=== PATIENT | male | born 1955 | race Caucasian/White ===

== ENCOUNTER 2017-10-21 11:49 | Inpatient (IN) | payer BC ==
--- NOTE | 2017-10-21 12:29 | PDOC ---
Attending Attestation - Resident Resident Name: Jarrett Quevedo - ED Attending Attestation I have performed the following: I have examined & evaluated the patient, The case was reviewed & discussed with the resident, I agree w/resident's findings & plan, Exceptions are as noted - HPI HPI: 62 yo M sent by Dr. Yadav for severe abdominal pain. He was seen by Dr. Mcelroy yesterday for a liver biopsy, initially without any pain. However, over the course of the evening and into this morning he developed worsening pain, now severe. Pain is RUQ, radiating to R arm. Denies fever, chills. He has not taken anything for pain. - Physicial Exam PE: GENERAL: Awake, alert, and fully oriented. In obvious discomfort. HEAD: No signs of trauma EYES: PERRLA, EOMI, sclera anicteric, conjunctiva clear ENT: Auricles normal inspection, hearing grossly normal, nares patent, oropharynx clear without exudates. Moist mucosa NECK: Normal ROM, supple, no lymphadenopathy, JVD, or masses LUNGS: Breath sounds equal, clear to auscultation bilaterally. No wheezes, and no crackles HEART: Regular rate and rhythm, normal S1 and S2, no murmurs, rubs or gallops ABDOMEN: Firm, diffusely tender, normoactive bowel sounds. +Guarding and rebound. No masses EXTREMITIES: Normal range of motion, no edema. No clubbing or cyanosis. No cords, erythema, or tenderness NEUROLOGICAL: Cranial nerves II through XII grossly intact. Normal speech, normal gait SKIN: Warm, Dry, normal turgor, no rashes or lesions noted. - Medical Decision Making 10/21/17 12:47 Pt s/p liver biopsy with Dr. Mcelroy yesterday, now sent from Dr. Yadav's office with severe abd pain. Abd rigid. Will obtain emergent CT, will d/w Dr. Mcelroy.
[2017-10-21] MEDS ORDERED: morphine CARPU-JECT 4 MG/1 ML DISP.SYRIN IVPUSH ONE ×2 (12:39→13:24)
[2017-10-21] MEDS ORDERED: morphine CARPU-JECT 8 MG/1 ML DISP.SYRIN ONE ×3 (12:48→21:28)
[2017-10-21 13:00] LABS: BASO % 0.3 % (0-2.0); MCH 30.8 pg (25.7-33.7); MCHC 32.6 g/dl (32.0-35.9); MEAN CELL VOLUME 94.4 fl (80-96); MEAN PLT VOLUME 9.3 fl (7.5-11.1); PLATELET COUNT 352 K/MM3 (134-434); RDW 16.4 % (11.9-15.9); WHITE BLOOD COUNT 11.6 K/mm3 (4.0-10.0)
[2017-10-21] MEDS ORDERED: SODIUM CHLORIDE 1,000 ML IV STA ×2 (13:24→16:35)
[2017-10-21 13:25] LABS: INR 1.27 (0.82-1.09); PROTHROMBIN TIME (PATIENT) 14.4 SEC (9.98-11.88)
--- NOTE | 2017-10-21 13:41 | PDOC ---
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 Onset was a few hours after his procedure. He denies associated nausea, vomiting, fevers and chills. LBM yesterday. Denies dysuria. Denies shortness of breath and chest pain. Pain is increased with inspiration. Procedure was discussed with Dr Mcelroy ([phone]) who said the procedure was tolerated without complications with a post- procedure ultrasound showing no complications. Past History - Past Medical History Allergies/Adverse Reactions: Allergies Allergy/AdvReac Type Severity Reaction Status Date / Time aspirin Allergy Verified 10/21/17 12:01 Home Medications: Ambulatory Orders Losartan/Hydrochlorothiazide [Losartan-Hctz 50-12.5 Mg Tab] 1 each PO DAILY tablet 06/07/15 Metoprolol Succinate 100 mg PO DAILY tablet 06/07/15 Simvastatin 20 mg PO DAILY tablet 06/07/15 Zonisamide [Zonegran] 100 mg PO BID capsule 06/07/15 Cardiac Disorders: Yes (cad) COPD: No Seizures: Yes Other medical history: wt loss - Surgical History Abdominal Surgery: Yes (liver biopsy, ing hernia) - Suicide/Smoking/Psychosocial Hx Smoking History: Never smoked Information on smoking cessation initiated: No Hx Alcohol Use: Yes (hx of) Drug/Substance Use Hx: No Substance Use Type: None Review of Systems - Review of Systems Able to Perform ROS?: Yes Comments:: 10/21/17 13:42 GENERAL/CONSTITUTIONAL: No fever or chills. No weakness. HEAD, EYES, EARS, NOSE AND THROAT: No change in vision. No sore throat. CARDIOVASCULAR: No chest pain or shortness of breath RESPIRATORY: No cough, wheezing, or hemoptysis. GASTROINTESTINAL: No nausea, vomiting, diarrhea or constipation. GENITOURINARY: No dysuria, frequency, or change in urination. NEUROLOGIC: No headache, vertigo, loss of consciousness, or change in strength/ sensation. HEMATOLOGIC/LYMPHATIC: No anemia, easy bleeding, or history of blood clots. ALLERGIC/IMMUNOLOGIC: No hives or skin allergy. *Physical Exam - Vital Signs Last Vital Signs Temp Pulse Resp BP Pulse Ox 99.4 F 114 H 22 174/85 100 10/21/17 12:02 10/21/17 12:02 10/21/17 12:02 10/21/17 12:02 10/21/17 12:02 - Physical Exam Comments: 10/21/17 13:42 GENERAL: Awake, alert, and fully oriented, in acute distress HEAD: No signs of trauma, normocephalic, atraumatic EYES: PERRLA, EOMI, sclera anicteric, conjunctiva clear ENT: Auricles normal inspection, hearing grossly normal, nares patent, oropharynx clear without exudates. Moist mucosa LUNGS: No distress, speaks full sentences, clear to auscultation bilaterally HEART: Regular rate and rhythm, normal S1 and S2, no murmurs, rubs or gallops, peripheral pulses normal and equal bilaterally. ABDOMEN: Rigid, diffusely tender, especially in RUQ. Guarding. EXTREMITIES: Normal inspection, Normal range of motion, no edema. No clubbing or cyanosis. NEUROLOGICAL: Cranial nerves II through XII grossly intact. Normal speech, no focal sensorimotor deficits SKIN: Warm, Dry, normal turgor, no rashes or lesions noted. ED Treatment Course - LABORATORY CBC & Chemistry Diagram: 10/21/17 12:51 10/21/17 12:51 - ADDITIONAL ORDERS Additional order review: Laboratory Results 10/21/17 12:51 PT with INR 14.40 H INR 1.27 H 10/21/17 12:51 RBC 3.78 L MCV 94.4 MCHC 32.6 RDW 16.4 H MPV 9.3 Neutrophils % 81.0 Lymphocytes % 11.5 Monocytes % 7.2 Eosinophils % 0.0 Basophils % 0.3 - RADIOLOGY Radiology Studies Ordered: Category Date Time Status ABDOMEN & PELVIS CT W/O CONTR [CT] Stat CT Scan 10/21/17 13:00 Taken CHEST X-RAY PORTABLE* [RAD] Stat Radiology 10/21/17 13:20 Ordered - Medications Given in the ED: ED Medications Discontinued Medications Generic Name Dose Route Start Last Admin Trade Name Freq PRN Reason Stop Dose Admin Morphine Sulfate 4 mg 10/21/17 12:39 10/21/17 12:56 Morphine Injection - IVPUSH 10/21/17 12:40 4 mg ONCE ONE Administration Medical Decision Making - Medical Decision Making 10/21/17 13:44 Patient is a 62M with undifferentiated cancer with spread to the liver, HTN, prior VT and seizure here today with rigid abdomen. Vital signs notable for tachycardia. Patient is in obvious distress. Protecting airway, clear breath sounds bilaterally. Initial BP stable, two IVs placed and 1L NS given. Labs drawn, EKG done. Taken immediately for dry CT scan to evaluate for free air. Given 2x4mg of morphine for pain control. Differential diagnosis includes, but is not limited to: perf, liver laceration/bleed. Will call surgery if free air found on CT scan. Will do CT w/ IV contrast if nothing apparent on dry CT. Heart rate down to mid 90s after pain control and fluids. EKG shows normal sinus rhythm. Normal rate ([address] elevations/ depressions. Normal QTc and CT interval. T wave inverions in V3, V4, V5, V6. 10/21/17 14:34 Laboratory Tests 10/21/17 10/21/17 10/21/17 12:51 12:51 12:51 WBC 11.6 H Hgb 11.6 L Hct 35.7 Plt Count 352 INR VBG pH POC VBG pCO2 Anion Gap 11 BUN 13 Creatinine 0.9 Lactic Acid 2.0 Total Bilirubin 1.1 H AST 41 H ALT 57 Alkaline Phosphatase 124 H 10/21/17 10/21/17 12:51 13:20 WBC Hgb Hct Plt Count INR 1.27 H VBG pH 7.29 L POC VBG pCO2 53.3 H Anion Gap BUN Creatinine Lactic Acid Total Bilirubin AST ALT Alkaline Phosphatase CBC shows small leukocytosis. Hgb 11.6, no baseline known. No gap. Tbili of 1.1 , AST and alk phos mildly elevated. VBG shows ph of 7.29 with pCO2 of 53. Abd/Pelvis dry ct shows small amount of fluid concerning for blood in pelvis. Will evaluate further with CT abd/pelvis with contrast. Patient now resting comfortably in bed after fluids and morphine, SBP in 150s and HR between 85-95. 10/21/17 19:38 Patient signed out to Dr Navarro. Patient admitted to med/surg. *DC/Admit/Observation/Transfer Diagnosis at time of Disposition: Abdominal pain - Discharge Dispostion Condition at time of disposition: Stable Admit: Yes - Referrals Referrals: James Yadav MD [Primary Care Provider] - - Patient Instructions - Post Discharge Activity
[2017-10-21 13:45] LABS: ALBUMIN 3.5 g/dl (3.4-5.0); ALK PHOS 124 U/L (45-117); ANION GAP 11 (8-16); BILIRUBIN,TOTAL 1.1 mg/dL (0.2-1.0); CALCIUM 9.7 mg/dL (8.5-10.1); CO2 25 mmol/L (21-32); CREATININE 0.9 mg/dL (0.7-1.3); GLUCOSE,RANDOM 111 mg/dL (74-106); SGOT/AST 41 U/L (15-37); SGPT/ALT 57 U/L (12-78)
[2017-10-21 14:26] LABS: VENOUS BLOOD GAS HCO3 25.1 meq/L (19-25); VENOUS PH 7.29 (7.32-7.42)
[2017-10-21 17:25] LABS: URINE APPEARANCE CLEAR; URINE BILIRUBIN NEGATIVE (NEGATIVE); URINE BLOOD NEGATIVE (NEGATIVE); URINE COLOR AMBER; URINE GLUCOSE (UA) NEGATIVE (NEGATIVE); URINE KETONE NEGATIVE (NEGATIVE); URINE LEUK ESTERASE NEGATIVE (NEGATIVE); URINE NITRITE NEGATIVE (NEGATIVE); URINE PROTEIN NEGATIVE (NEGATIVE); URINE UROBILINOGEN NEGATIVE mg/dL (0.2-1.0)
--- NOTE | 2017-10-21 18:57 | CON.GI ---
Consult Consult Specialty:: GI Reason for Consultation:: pain after liver biopsy - History of Present Illness Chief Complaint: 62 y.o. M with metastatic disease to liver from unknown primary. I performed a liver bx under ultrasound guidance yesterday. A post- biopsy ultrasound did not show any hematoma. According to patient and his , he developed diffuse abdominal pain last night and this morning and finally decided to come to ER for pain relief. Denies fever, chills. vomiting. - Alcohol/Substance Use Hx Alcohol Use: Yes (hx of) - Smoking History Smoking history: Never smoked Home Medications - Allergies Allergies/Adverse Reactions: Allergies Allergy/AdvReac Type Severity Reaction Status Date / Time aspirin Allergy Verified 10/21/17 12:01 - Home Medications Home Medications: Ambulatory Orders Losartan/Hydrochlorothiazide [Losartan-Hctz 50-12.5 Mg Tab] 1 each PO DAILY tablet 06/07/15 Metoprolol Succinate 100 mg PO DAILY tablet 06/07/15 Simvastatin 20 mg PO DAILY tablet 06/07/15 Zonisamide [Zonegran] 100 mg PO BID capsule 06/07/15 Physical Exam-GI Vital Signs: Vital Signs Temperature 99.4 F 10/21/17 12:02 Pulse Rate 90 10/21/17 16:46 Respiratory Rate 18 10/21/17 16:46 Blood Pressure 171/73 10/21/17 16:46 O2 Sat by Pulse Oximetry (%) 96 10/21/17 16:46 ...Auscultate: Yes: Hypoactive Bowel Sounds (He has slightly hypoactive bowel sounds with guarding but no rebound tenderness. He is able to bend his legs without pain.) ...Palpate: Yes: Guarding Labs: CBC, BMP 10/21/17 12:51 10/21/17 12:51 INR, PTT INR 1.27 (0.82-1.09) H 10/21/17 12:51 Imaging - Results Cat Scan: Image Reviewed (No sign of perforation. There may be a small amount of fluid in the pelvis, possibly malignant ascites, possibly a small amount of blood.) Problem List - Problems (1) Neoplasm of liver Assessment/Plan: Case discussed with ER staff physician, Dr Quevedo. Recommend keeping patient for observation. He appears to be in genuine discomfort. He did tell me yesterday that he has been getting increasing abdominal pain over the past few weeks, and it is possible that his tumor is now encroaching on sensitive nerves. Nevertheless, with an increase in pain occurring so dramatically after the liver biopsy, it is prudent to observe him to see whether something more definite develops.
[2017-10-21 20:39] LABS: URINE LEUK ESTERASE Negative (NEGATIVE)
--- NOTE | 2017-10-21 20:57 | EKG ---
Test Reason : Blood Pressure : / mmHG Vent. Rate : 095 BPM Atrial Rate : 095 BPM P-R Int : 162 ms QRS Dur : 094 ms QT Int : 316 ms P-R-T Axes : 063 061 025 degrees QTc Int : 397 ms NORMAL SINUS RHYTHM MODERATE VOLTAGE CRITERIA FOR LVH, MAY BE NORMAL VARIANT T WAVE ABNORMALITY, CONSIDER LATERAL ISCHEMIA ABNORMAL ECG NO PREVIOUS ECGS AVAILABLE Confirmed by MD LEO, VISHAL ([id number]) on 10/21/2017 8:57:06 PM Referred By: Confirmed By:VISHAL BAILEY MD
[2017-10-21] MEDS ORDERED: morphine CARPU-JECT 8 MG/1 ML DISP.SYRIN IVPUSH ONE (21:30)
[2017-10-21] MEDS ORDERED: morphine CARPU-JECT 8 MG/1 ML DISP.SYRIN IVPUSH PRN (21:49)
--- NOTE | 2017-10-21 21:49 | HP ---
CHIEF COMPLAINT: abdominal pain PCP: Maris HISTORY OF PRESENT ILLNESS: This is a 62 year old male with a past medical history of abdominal pain/weight loss, metastatic liver CA, unk primary who presented to the ED with severe RUQ abdominal pain s/p liver biopsy yesterday. He reports that he has been having abdominal pain and weight loss for some time now but the pain became severe a few hours post biopsy. He was unable to sleep due to the pain and thus presented to the ED. He reports the pain radiates to his left arm but denies any nausea, vomiting or diarrhea. ER course was notable for: (1) CT with perihepatic fluid, possible small hemoperitoneum (2) Hgb 11.6 Recent Travel: pt denies PAST MEDICAL HISTORY: metastatic liver CA, unk primary-family and pt unaware of this definitive diagnosis seizure d/o IA-10y ago HLD CAD PAST SURGICAL HISTORY: hernia repair age 3 Social History: Smoking: pt denies ever Alcohol: quit drinking 10y ago Drugs: pt denies Family History: mother age 86, Alzheimers, DM father age 71, ESRD brother alive with DM No fam hx IA, cancer Allergies aspirin Allergy (Verified 10/21/17 12:01) HOME MEDICATIONS: 3 Medication Instructions Recorded Losartan/Hydrochlorothiazide 1 each PO DAILY tablet 06/07/15 [Losartan-Hctz 50-12.5 Mg Tab] Metoprolol Succinate 100 mg PO DAILY tablet 06/07/15 Simvastatin 20 mg PO DAILY tablet 06/07/15 Zonisamide [Zonegran] 100 mg PO BID capsule 06/07/15 REVIEW OF SYSTEMS CONSTITUTIONAL: weight change Absent: fever, chills, diaphoresis, generalized weakness, malaise, loss of appetite HEENT: Absent: rhinorrhea, nasal congestion, throat pain, throat swelling, difficulty swallowing, mouth swelling, ear pain, eye pain, visual changes CARDIOVASCULAR: Absent: chest pain, syncope, palpitations, irregular heart rate, lightheadedness , peripheral edema RESPIRATORY: Absent: cough, shortness of breath, dyspnea with exertion, orthopnea, wheezing, stridor, hemoptysis GASTROINTESTINAL: abdominal pain Absent: abdominal distension, nausea, vomiting, diarrhea, constipation, melena, hematochezia GENITOURINARY: Absent: dysuria, frequency, urgency, hesitancy, hematuria, flank pain, genital pain MUSCULOSKELETAL: Absent: myalgia, arthralgia, joint swelling, back pain, neck pain SKIN: Absent: rash, itching, pallor HEMATOLOGIC/IMMUNOLOGIC: Absent: easy bleeding, easy bruising, lymphadenopathy, frequent infections ENDOCRINE: Absent: unexplained weight gain, heat intolerance, cold intolerance NEUROLOGIC: Absent: headache, focal weakness or paresthesias, dizziness, unsteady gait, seizure, mental status changes, bladder or bowel incontinence PSYCHIATRIC: Absent: anxiety, depression, suicidal or homicidal ideation, hallucinations. PHYSICAL EXAMINATION Vital Signs - 24 hr 3 10/21/17 10/21/17 12:02 16:46 Temperature 99.4 F Pulse Rate 114 H Pulse Rate [ 90 Right Radial] Respiratory 22 18 Rate Blood Pressure 174/85 Blood Pressure 171/73 [Left Arm] O2 Sat by Pulse 100 96 Oximetry (%) GENERAL: Awake, alert, and fully oriented, in no acute distress. HEAD: Normal with no signs of trauma. EYES: Pupils equal, round and reactive to light, extraocular movements intact, sclera anicteric, conjunctiva clear. No lid lag. EARS, NOSE, THROAT: Ears normal, nares patent, oropharynx clear without exudates. Moist mucous membranes. NECK: Normal range of motion, supple without lymphadenopathy, JVD, or masses. LUNGS: Breath sounds equal, clear to auscultation bilaterally. No wheezes, and no crackles. No accessory muscle use. HEART: Regular rate and rhythm, normal S1 and S2 without murmur, rub or gallop. ABDOMEN: Soft, tender to palpation RUQ, not distended, normoactive bowel sounds, + guarding, no rebound, no masses. No hepatomegaly or splenomegaly. MUSCULOSKELETAL: Normal range of motion at all joints. No bony deformities or tenderness. No CVA tenderness. UPPER EXTREMITIES: 2+ pulses, warm, well-perfused. No cyanosis. No clubbing. No peripheral edema. LOWER EXTREMITIES: 2+ pulses, warm, well-perfused. No calf tenderness. No peripheral edema. NEUROLOGICAL: Cranial nerves II-XII intact. Normal speech. Normal gait. PSYCHIATRIC: Cooperative. Good eye contact. Appropriate mood and affect. SKIN: Warm, dry, normal turgor, no rashes or lesions noted, normal capillary refill. Laboratory Results - last 24 hr 3 10/21/17 10/21/17 10/21/17 12:51 12:51 12:51 WBC 11.6 H RBC 3.78 L Hgb 11.6 L Hct 35.7 MCV 94.4 MCH 30.8 MCHC 32.6 RDW 16.4 H Plt Count 352 MPV 9.3 Neutrophils % 81.0 Lymphocytes % 11.5 Monocytes % 7.2 Eosinophils % 0.0 Basophils % 0.3 PT with INR 14.40 H INR 1.27 H VBG pH 7.29 L POC VBG pCO2 53.3 H POC VBG pO2 29.6 Mixed VBG HCO3 25.1 H Sodium 137 Potassium 4.1 Chloride 101 Carbon Dioxide 25 Anion Gap 11 BUN 13 Creatinine 0.9 Creat Clearance w eGFR > 60 Random Glucose 111 H Lactic Acid 2.0 Calcium 9.7 Total Bilirubin 1.1 H AST 41 H ALT 57 Alkaline Phosphatase 124 H Total Protein 8.0 Albumin 3.5 Lipase 86 Urine Color Urine Appearance Urine pH Ur Specific [place] Urine Protein Urine Glucose (UA) Urine Ketones Urine Blood Urine Nitrite Urine Bilirubin Urine Urobilinogen Ur Leukocyte Esterase Blood Type A POSITIVE Antibody Screen Negative 3 Urine Color Ghazal 10/21/17 16:42 Urine Appearance Clear 10/21/17 16:42 Urine pH 5.0 (5.0-8.0) 10/21/17 16:42 Ur Specific [place] 1.038 (1.001-1.035) H 10/21/17 16:42 Urine Protein Negative (NEGATIVE) 10/21/17 16:42 Urine Glucose (UA) Negative (NEGATIVE) 10/21/17 16:42 Urine Ketones Negative (NEGATIVE) 10/21/17 16:42 Urine Blood Negative (NEGATIVE) 10/21/17 16:42 Urine Nitrite Negative (NEGATIVE) 10/21/17 16:42 Urine Bilirubin Negative (NEGATIVE) 10/21/17 16:42 Ur Leukocyte Esterase Negative (NEGATIVE) 10/21/17 16:42 ASSESSMENT/PLAN: 62yM with PMH metastatic liver CA, seizures, IA, HLD, CAD presented to the ED with severe abdominal pain s/p liver biopsy yesterday. Abdominal pain s/p liver bx - ? r/t biopsy vs tumor burden - possible hemoperitoneum on CT scan - repeat CBC in am - consider repeat CT - GI consult appreciated CAD/HLD - cont om emeds: toprol, hyzaar; zocor changed to formulary lipitor seizure d/o - cont zonegran hypothyroid - check TSH DVT PPX - deferred as expected LOS less than 48 h FEN - NS @ 100cc/hr while NPO - bmp in am - npo for now Dispo: pt currently requires inpatient observation for management of his emergent condition Visit type - Emergency Visit Emergency Visit: Yes ED Registration Date: 10/21/17 Care time: The patient presented to the Emergency Department on the above date and was hospitalized for further evaluation of their emergent condition. - New Patient This patient is new to me today: Yes Date on this admission: 10/21/17 - Critical Care Critical Care patient: No
[2017-10-21] MEDS: SODIUM CHLORIDE 1,000 ML IV SCH (21:59)
[2017-10-21] MEDS ORDERED: ATORVASTATIN CA 10 MG TABLET (FP) PO SCH (22:15)
[2017-10-21] MEDS ORDERED: DOCUSATE SODIUM 100 MG CAPSULE (FP) PO ONE (23:08)
[2017-10-21] MEDS: DOCUSATE SODIUM 100 MG CAPSULE (FP) PO SCH (23:18)
[2017-10-21] MEDS: ZONISAMIDE 100 MG CAPSULE PO SCH (23:39)
[2017-10-22] MEDS: morphine SULFATE 4 MG/ML VIAL IVPUSH PRN ×3 (01:50→16:48)
[2017-10-22] MEDS: SODIUM CHLORIDE 1,000 ML IV SCH ×3 (02:26→22:18)
[2017-10-22 03:48] VITALS: BMI 21.2
[2017-10-22] MEDS: LEVOTHYROXINE NA 50 MCG TABLET (FP) PO SCH (06:26)
[2017-10-22 08:20] LABS: BASO % 0.3 % (0-2.0); EOS % 0.1 % (0-4.5); MCH 31.8 pg (25.7-33.7); MCHC 33.4 g/dl (32.0-35.9); MEAN CELL VOLUME 95.1 fl (80-96); MEAN PLT VOLUME 9.7 fl (7.5-11.1); NEUT % 76.6 % (42.8-82.8); PLATELET COUNT 188 K/MM3 (134-434); RDW 16.2 % (11.9-15.9); WHITE BLOOD COUNT 7.3 K/mm3 (4.0-10.0)
[2017-10-22 09:03] LABS: ANION GAP 6 (8-16); CALCIUM 8.4 mg/dL (8.5-10.1); CO2 25 mmol/L (21-32); CREATININE 0.5 mg/dL (0.7-1.3); GLUCOSE,RANDOM 96 mg/dL (74-106); MAGNESIUM 1.9 mg/dL (1.8-2.4)
[2017-10-22] MEDS ORDERED: PT OWN MED DRAWER 7, Y5N ONE (09:39)
[2017-10-22] MEDS: METOPROLOL SUCCINATE 100 MG TAB.SR.24H (FP) PO SCH (09:46)
[2017-10-22] MEDS: LOSARTAN 50MG/HCTZ 12.5MG 1 TAB (FP) PO SCH (09:48)
[2017-10-22] MEDS: ZONISAMIDE 100 MG CAPSULE PO SCH ×2 (09:48→22:19)
[2017-10-22] MEDS: POLYETHYLENE GLYCOL 3350 119 GM BTL PO SCH (09:48)
[2017-10-22 16:33] LABS: MCH 32.1 pg (25.7-33.7); MCHC 33.8 g/dl (32.0-35.9); MEAN CELL VOLUME 94.9 fl (80-96); MEAN PLT VOLUME 9.7 fl (7.5-11.1); PLATELET COUNT 227 K/MM3 (134-434); RDW 16.4 % (11.9-15.9)
--- NOTE | 2017-10-22 17:47 | PN ---
Progress Note (short form) - Note Progress Note: Pt ate, still has poor appetite, persistent abdominal pain. WBC normal, Hgb 9.8. Note his Hgb was 10.4 on blood I jessica on 10/15/17; I think the initial Hgb of 11.2 here reflected some dehyrdation. Current exam: awake, alert, pleasant. Abdomen: bowel sounds present, still some upper abdominal tenderness but no guarding today. I spoke to Mr Lerner and his and informed them that I had a preliminary diagnosis of neuroendocrine tumor (I used the words "slow-growing tumor" rather than neuroendocrine tumor). I told them it was not curable but it was treatable ; the first line of treatment is somatostatin and long-acting analogues ( lanreotide). I explained that we could not initiate treatment until the pathology was finalized (special stains pending). I spoke also with Ms Dina NP, about management. If he continues to tolerate diet I would hope he could be discharged tomorrow with oral pain control.
[2017-10-22] MEDS: DOCUSATE SODIUM 100 MG CAPSULE (FP) PO SCH (22:19)
[2017-10-23] MEDS: LEVOTHYROXINE NA 50 MCG TABLET (FP) PO SCH (06:38)
[2017-10-23 07:30] LABS: MCH 31.7 pg (25.7-33.7); MCHC 33.4 g/dl (32.0-35.9); MEAN CELL VOLUME 94.8 fl (80-96); MEAN PLT VOLUME 9.5 fl (7.5-11.1); PLATELET COUNT 224 K/MM3 (134-434); RDW 15.9 % (11.9-15.9); WHITE BLOOD COUNT 6.6 K/mm3 (4.0-10.0)
[2017-10-23] MEDS ORDERED: PT OWN MED DRAWER 7, Y5N ONE (09:13)
[2017-10-23] MEDS: LOSARTAN 50MG/HCTZ 12.5MG 1 TAB (FP) PO SCH (09:14)
[2017-10-23] MEDS: METOPROLOL SUCCINATE 100 MG TAB.SR.24H (FP) PO SCH (09:14)
[2017-10-23] MEDS: POLYETHYLENE GLYCOL 3350 119 GM BTL PO SCH (09:15)
[2017-10-23] MEDS: ZONISAMIDE 100 MG CAPSULE PO SCH ×2 (09:15→22:28)
[2017-10-23] MEDS ORDERED: LOSARTAN POTASSIUM 50 MG TABLET (FP) PO ONE (11:27)
[2017-10-23] MEDS: morphine SULFATE 4 MG/ML VIAL IVPUSH PRN (11:40)
[2017-10-23] MEDS ORDERED: oxyCODONE HCL 5 MG TABLET PO PRN (11:47)
[2017-10-23] MEDS ORDERED: hydrALAZINE HCL 10 MG TABLET PO ONE (16:49)
--- NOTE | 2017-10-23 19:50 | PN ---
Progress Note (short form) - Note Progress Note: Subjective: The patient was seen and examined at the bedside, he had complaints of RUQ pain. He denies any nausea, vomiting, diarrhea, chills, fever. Current Medications Generic Name Dose Route Start Last Admin Trade Name Freq PRN Reason Stop Dose Admin Docusate Sodium 300 mg 10/21/17 22:00 10/21/17 23:18 Colace - PO 300 mg HS RAJ Administration HCTZ/Losartan Potassium 1 tab 10/22/17 10:00 10/22/17 09:48 Hyzaar - PO 1 tab DAILY RAJ Administration Sodium Chloride 1,000 mls @ 100 mls/hr 10/21/17 22:00 10/22/17 13:20 Normal Saline - IV 100 mls/hr ASDIR RAJ Administration Levothyroxine Sodium 50 mcg 10/22/17 07:00 10/22/17 06:26 Synthroid - PO 50 mcg AM RAJ Administration Metoprolol Succinate 100 mg 10/22/17 10:00 10/22/17 09:46 Toprol Xl - PO 100 mg DAILY RAJ Administration Morphine Sulfate 2 mg 10/22/17 16:55 Morphine Sulfate IVPUSH Q6H PRN PAIN Polyethylene Glycol 17 gm 10/22/17 10:00 10/22/17 09:48 Miralax (For Daily Use) - PO 17 gm DAILY RAJ Administration Zonisamide 100 mg 10/21/17 22:00 10/22/17 09:48 Zonegran - PO 100 mg BID RAJ Administration Objective: Vital Signs Period Temp Pulse Resp BP Sys/Garcia Pulse Ox Last 24 Hr 98.2 F-98.8 F 70-86 16-20 153-183/74-89 95-97 Physical Exam: General: NAD, A&Ox3 Lungs: CTA bilaterally Heart: RRR, S1S2 Abd: Soft, mild RUQ tenderness. Normoactive bowel sounds. RUQ bandaid over biopsy site Ext: Warm, well-perfused. 2+ DP/PT Neuro: CN 2-12 intact CBCD WBC 8.0 K/mm3 (4.0-10.0) 10/22/17 16:00 RBC 3.06 M/mm3 (4.00-5.60) L 10/22/17 16:00 Hgb 9.8 GM/dL (11.7-16.9) L 10/22/17 16:00 Hct 29.1 % (35.4-49) L 10/22/17 16:00 MCV 94.9 fl (80-96) 10/22/17 16:00 MCHC 33.8 g/dl (32.0-35.9) 10/22/17 16:00 RDW 16.4 % (11.9-15.9) H 10/22/17 16:00 Plt Count 227 K/MM3 (134-434) D 10/22/17 16:00 MPV 9.7 fl (7.5-11.1) 10/22/17 16:00 CMP Sodium 136 mmol/L (136-145) 10/22/17 06:30 Potassium 3.8 mmol/L (3.5-5.1) 10/22/17 06:30 Chloride 105 mmol/L (98-107) 10/22/17 06:30 Carbon Dioxide 25 mmol/L (21-32) 10/22/17 06:30 Anion Gap 6 (8-16) L 10/22/17 06:30 BUN 9 mg/dL (7-18) D 10/22/17 06:30 Creatinine 0.5 mg/dL (0.7-1.3) L D 10/22/17 06:30 Creat Clearance w eGFR > 60 (>60) 10/21/17 12:51 Random Glucose 96 mg/dL (74-106) 10/22/17 06:30 Calcium 8.4 mg/dL (8.5-10.1) L 10/22/17 06:30 Total Bilirubin 1.1 mg/dL (0.2-1.0) H 10/21/17 12:51 AST 41 U/L (15-37) H 10/21/17 12:51 ALT 57 U/L (12-78) 10/21/17 12:51 Alkaline Phosphatase 124 U/L (45-117) H 10/21/17 12:51 Total Protein 8.0 g/dl (6.4-8.2) 10/21/17 12:51 Albumin 3.5 g/dl (3.4-5.0) 10/21/17 12:51 Microbiology 10/21/17 13:20 Blood - Peripheral Venous Blood Culture - Preliminary NO GROWTH OBTAINED AFTER 24 HOURS, INCUBATION TO CONTINUE FOR 4 DAYS. 10/21/17 13:24 Blood - Peripheral Venous Blood Culture - Preliminary NO GROWTH OBTAINED AFTER 24 HOURS, INCUBATION TO CONTINUE FOR 4 DAYS. Assessment: This is a 62 year old male with PMHx of abdominal pain/weight loss, who presented to the ED s/p liver biopsy with severe RUQ pain Plan: 1) RUQ pain s/p liver biopsy - CTAP 10/21/17 with very small perihepatic free fluid seen - Pain improving - Discussed with Dr. Mcelroy, can be discharged on po pain management 2) New diagnosis of preliminary neuroendocrine tumor - Will need outpatient follow-up with GI within 1 week for final results from liver biopsy then Dr. Mcelroy will refer to proper oncologist 3) HTN - Increased Losartan to 100mg po daily - Changed Toprol XL to Labetolol 200mg bid - Increased Hctz 25mg po daily
[2017-10-23] MEDS: DOCUSATE SODIUM 100 MG CAPSULE (FP) PO SCH (22:26)
[2017-10-23] MEDS: LABETALOL HCL 200 MG TABLET (FP) PO SCH (22:29)
[2017-10-24] MEDS: LEVOTHYROXINE NA 50 MCG TABLET (FP) PO SCH (06:03)
[2017-10-24 07:28] LABS: MCH 31.4 pg (25.7-33.7); MCHC 33.4 g/dl (32.0-35.9); MEAN CELL VOLUME 93.9 fl (80-96); MEAN PLT VOLUME 9.3 fl (7.5-11.1); PLATELET COUNT 219 K/MM3 (134-434); RDW 16.2 % (11.9-15.9); WHITE BLOOD COUNT 5.3 K/mm3 (4.0-10.0)
[2017-10-24] MEDS: morphine SULFATE 4 MG/ML VIAL IVPUSH PRN (08:04)
[2017-10-24 08:08] LABS: ALBUMIN 2.2 g/dl (3.4-5.0); ALK PHOS 88 U/L (45-117); ANION GAP 7 (8-16); BILIRUBIN,TOTAL 0.8 mg/dL (0.2-1.0); CALCIUM 8.4 mg/dL (8.5-10.1); CO2 28 mmol/L (21-32); CREATININE 0.8 mg/dL (0.7-1.3); GLUCOSE,RANDOM 85 mg/dL (74-106); SGOT/AST 31 U/L (15-37); SGPT/ALT 39 U/L (12-78); TOT PROT 5.5 g/dl (6.4-8.2)
[2017-10-24 08:14] VITALS: BP 140/68; PULSE 73; TEMP 98.4
--- NOTE | 2017-10-24 09:44 | DS ---
Physical Examination Vital Signs: Vital Signs Temperature 98.4 F 10/24/17 08:11 Pulse Rate 73 10/24/17 08:11 Respiratory Rate 18 10/24/17 08:11 Blood Pressure 140/68 10/24/17 08:11 O2 Sat by Pulse Oximetry (%) 95 10/23/17 20:00 Labs: CBC, BMP 10/24/17 07:10 10/24/17 07:10 Discharge Summary Reason For Visit: ABDOMINAL PAIN Current Active Problems Abdominal pain (Acute) Neoplasm of liver (Acute) Condition: Improved - Instructions Diet, Activity, Other Instructions: Please return to the ED with new, persistent, or worsening symptoms. Please follow-up with providers as indicated. New hypertension regimen: Labetolol 200mg by mouth twice a day Hydrochlorothiazide 25mg by mouth daily Losartan 100mg by mouth daily Referrals: James Yadav MD [Primary Care Provider] - (Please follow-up with Dr. Yadav with 1 week for further management of your high blood pressure) Trent Mcelroy MD [Staff Physician] - (Please follow-up with Dr. Mcelroy GI within 3-5 days for liver biopsy final results) Disposition: HOME - Home Medications Comprehensive Discharge Medication List: Ambulatory Orders Zonisamide [Zonegran] 100 mg PO BID capsule 06/07/15 Docusate Sodium [Colace -] 300 mg PO HS #90 capsule 10/24/17 Hydrochlorothiazide [Hctz -] 25 mg PO DAILY #30 tablet 10/24/17 Labetalol HCl [Normodyne -] 200 mg PO BID #60 tablet 10/24/17 Losartan Potassium [Cozaar -] 100 mg PO DAILY #30 tablet 10/24/17 Oxycodone HCl [Roxicodone -] 5 mg PO Q4H PRN #30 tablet MDD 30mg 10/24/17 Polyethylene Glycol 3350 [Miralax 119 gm Btl -] 17 gm PO DAILY #1 bottle
[2017-10-24] MEDS ORDERED: HYDROCHLOROTHIAZIDE 25 MG TABLET (FP) PO SCH (10:00)
[2017-10-24] MEDS ORDERED: LOSARTAN POTASSIUM 50 MG TABLET (FP) PO SCH (10:00)
[2017-10-24] MEDS: LABETALOL HCL 200 MG TABLET (FP) PO SCH (10:18)
[2017-10-24] MEDS: POLYETHYLENE GLYCOL 3350 119 GM BTL PO SCH (10:18)
[2017-10-24] MEDS ORDERED: PT OWN MED DRAWER 7, Y5N ONE (10:20)
[2017-10-24] MEDS: ZONISAMIDE 100 MG CAPSULE PO SCH (10:21)
== END 2017-10-24 11:34 | disposition home or self-care (01) | DRG 392 ==
LOC: JER 11:49 → JERBED 22:24 → J5S 10-22 01:38
PROVIDERS: ADMIT Internal Medicine; ATTEND Registered Nurse
DX: R10.11 Right upper quadrant pain (principal); C78.7 Secondary malignant neoplasm of liver and intrahepatic bile duct; G40.89 Other seizures; Z98.890 Other specified postprocedural states; I10 Essential (primary) hypertension; E78.5 Hyperlipidemia, unspecified; I25.2 Old myocardial infarction; I25.10 Atherosclerotic heart disease of native coronary artery without angina pectoris; C80.1 Malignant (primary) neoplasm, unspecified; E03.9 Hypothyroidism, unspecified; E86.0 Dehydration
CPT/HCPCS: 36415; 71010-TC; 74176-TC; 74177-TC; 80048; 80053; 81003; 82803; 83605; 83690; 83735; 85025; 85027; 85610; 85730; 86850; 86900; 86901; 87040; 87086; 93005; 93010; 99284-25

== ENCOUNTER → 2019-02-24 | Day surgery (SDC) | payer BC, OTHER ==
[2019-02-24 09:59] LABS: BASO % 1.2 % (0-2.0); EOS % 0.6 % (0-4.5); HEMATOCRIT 23.1 % (35.4-49); HEMOGLOBIN 8.2 GM/dL (11.7-16.9); LYMPH % 21.4 % (8-40); MCHC 35.6 g/dl (32.0-35.9); MEAN CELL VOLUME 101.1 fl (80-96); MEAN PLT VOLUME 8.1 fl (7.5-11.1); MONO % 6.4 % (3.8-10.2); NEUT % 70.4 % (42.8-82.8); PLATELET COUNT 384 K/MM3 (134-434); RBC 2.29 M/mm3 (4.00-5.60); RDW 18.2 % (11.9-15.9); WHITE BLOOD COUNT 4.5 K/mm3 (4.0-10.0)
[2019-02-24 10:29] LABS: INR 1.48 (0.83-1.09); PROTHROMBIN TIME (PATIENT) 17.5 SEC (9.7-13.0)
== END | disposition home or self-care (01) ==
LOC: JRADIR 09:16
PROVIDERS: ATTEND Internal Medicine Geriatric Medicine
PROC: 0W9G3ZZ Drainage of Peritoneal Cavity, Percutaneous Approach (ICD-10-PCS; principal; 2019-02-24)
PROC: BW40ZZZ Ultrasonography of Abdomen (ICD-10-PCS; 2019-02-24)
DX: R18.8 Other ascites (principal)
CPT/HCPCS: 36415; 49083; 76942-TC; 85025; 85610

== ENCOUNTER → 2019-03-22 | Day surgery (SDC) | payer BC, OTHER ==
[2019-03-22 11:27] LABS: HEMATOCRIT 21.6 % (35.4-49); HEMOGLOBIN 7.4 GM/dL (11.7-16.9); MCH 34.4 pg (25.7-33.7); MCHC 34.3 g/dl (32.0-35.9); MEAN CELL VOLUME 100.5 fl (80-96); MEAN PLT VOLUME 7.5 fl (7.5-11.1); PLATELET COUNT 525 K/MM3 (134-434); RBC 2.14 M/mm3 (4.00-5.60); WHITE BLOOD COUNT 7.3 K/mm3 (4.0-10.0)
[2019-03-22 11:39] LABS: INR 1.54 (0.83-1.09); PROTHROMBIN TIME (PATIENT) 18.3 SEC (9.7-13.0)
[2019-03-22 12:40] LABS: ANISOCYTOSIS 1+; MACROCYTOSIS 1+; PLATELET ESTIMATE INCREASED; TARGET CELLS 1+
== END | disposition home or self-care (01) ==
LOC: JRADIR 10:59
PROVIDERS: ATTEND Internal Medicine Geriatric Medicine
PROC: 0W9G3ZZ Drainage of Peritoneal Cavity, Percutaneous Approach (ICD-10-PCS; principal; 2019-03-22)
PROC: BW40ZZZ Ultrasonography of Abdomen (ICD-10-PCS; 2019-03-22)
DX: R18.0 Malignant ascites (principal)
CPT/HCPCS: 36415; 76942-TC; 85025; 85610